=== PATIENT | male | born 1970 | race Caucasian/White ===

== ENCOUNTER 2017-06-08 16:59 | Emergency (ER) | payer SELFPAY ==
[~2017-06-08] VITALS: Ht 175.3 cm; Wt 82.0 kg
[2017-06-08 17:04] VITALS: BP 122/74
[2017-06-08] MEDS ORDERED: IBUP-2028 PO (17:10)
== END 2017-06-08 19:55 | disposition left against medical advice (07) ==
LOC: ER 17:14
DX: R55 Syncope and collapse (principal); Z53.21 Procedure and treatment not carried out due to patient leaving prior to being seen by health care provider